=== PATIENT | male | born 1980 | race Caucasian/White ===

== ENCOUNTER 2017-05-10 17:36 | Emergency (ER) | payer OTHER ==
[2017-05-10] MEDS ORDERED: ONDANSETRON 4 MG/2 ML VIAL ONE (17:52)
[2017-05-10 18:00] VITALS: TEMP 97.7
[2017-05-10] MEDS ORDERED: NS 1,000 ML IV ONE (18:13)
[2017-05-10 18:17] LABS: % IMMATURE GRANULYOCYTES 0.3 % (0.0-1.1); ABSOLUTE IMMATURE GRANULOCYTES 0.05 10^3/uL (0.00-0.10); ADD DIFF? NO; ADD MORPH? NO; ADD SCAN? NO; ATYPICAL LYMPHOCYTE FLAG 40 (0-99); FRAGMENT RBC FLAG 0 (0-99); HEMATOCRIT 47.2 % (40.0-51.0); HEMOGLOBIN 16.6 g/dL (13.7-17.5); LEFT SHIFT FLG 0 (0-99); LIPEMIA HEMOLYSIS FLAG 90 (0-99); MEAN CELL HEMOGLOBIN 30.4 pg (27.9-34.1); MEAN CELL HEMOGLOBIN CONCENTR. 35.2 g/dL (32.4-36.7); MEAN CELL VOLUME 86.4 fL (81.5-99.8); MEAN PLATELET VOLUME 10.1 fL (8.7-11.7); PLATELET CLUMPS FLAG 0 (0-99); PLATELET COUNT 324 10^3/uL (150-400); RED BLOOD CELL COUNT 5.46 10^6/uL (4.40-6.38); RED CELL DISTRIBUTION WIDTH 13.9 % (11.5-15.2)
[2017-05-10 18:25] LABS: ALBUMIN 4.6 g/dL (3.5-5.0); BILIRUBIN,TOTAL 0.7 mg/dL (0.1-1.4); BILIRUBIN-CONJUGATED 0.4 mg/dL (0.0-0.5); BILIRUBIN-UNCONJUGATED 0.3 mg/dL (0.0-1.1); CALCIUM 9.2 mg/dL (8.5-10.4); CREATININE 1.4 mg/dL (0.7-1.3); POTASSIUM 4.2 mEq/L (3.5-5.2); TOTAL PROTEIN 7.7 g/dL (6.3-8.2)
[2017-05-10 18:37] VITALS: RESP 16
--- NOTE | 2017-05-10 18:38 | EDPHY ---
H & P Stated Complaint: 2 seizures today, back pain, nausea Time Seen by Provider: 05/10/17 17:51 HPI/ROS: CHIEF COMPLAINT: Two seizures, acute exacerbation of low back pain, nausea HISTORY OF PRESENT ILLNESS: The patient presents to the emergency department with complaints of an acute exacerbation of chronic low back pain following 2 reported seizures today. Patient is accompanied by his who reports a tonic -clonic seizure x2 lasting less than a minute. There is no incontinence. It is uncertain whether the patient was postictal. The patient does have a remote history of seizures. He reports he typically has 1 seizure a year. His last seizure was a year ago. The patient denies any recent alcohol use. 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 The patient does have a history of chronic low back pain and history of prior lower lumbar surgery. The patient denies alcohol use. The patient has not yet established relationship with a primary care provider. The patient takes no regular medications. The patient complains of moderate pain in his low back. He denies acute numbness or weakness. He does report associated nausea. He has a mild sensation of dyspnea. REVIEW OF SYSTEMS: A comprehensive 10 point review of systems is otherwise negative aside from elements mentioned in the history of present illness. Source: Patient, Family Exam Limitations: No limitations - Medical/Surgical History Hx Asthma: No Hx Chronic Respiratory Disease: No Hx Diabetes: No Hx Cardiac Disease: No Hx Renal Disease: No Hx Cirrhosis: No Hx Alcoholism: No Hx HIV/AIDS: No Hx Splenectomy or Spleen Trauma: No Other PMH: DDD, ADHD, seizures, schizoaffective disorder, social anxiety, homelessness. - Social History Smoking Status: Heavy smoker - Physical Exam Exam: General Appearance: Disheveled male, no acute distress Eyes: Pupils equal and round no pallor or injection ENT, Mouth: No teeth, mucous membranes moist, no obvious trauma to the tongue Respiratory: There are no retractions, lungs are clear to auscultation Cardiovascular: Regular rate and rhythm Gastrointestinal: Abdomen is soft and nontender, no masses, bowel sounds normal Neurological: A&O, normal motor function, normal sensory exam, normal cranial nerves Skin: Warm and dry, no rashes Musculoskeletal: Old lumbar surgical incision noted, no midline tenderness, mild bilateral lower lumbar tenderness to palpation Extremities: symmetrical, full range of motion Psychiatric: Patient is oriented X 3, there is no agitation Constitutional: Initial Vital Signs Temperature (C) 36.5 C 05/10/17 17:55 Heart Rate 86 05/10/17 17:55 Respiratory Rate 18 05/10/17 17:55 Blood Pressure 111/83 H 05/10/17 17:55 O2 Sat (%) 94 05/10/17 17:55 O2 Delivery Mode Room Air Allergies/Adverse Reactions: acetaminophen [From Vicodin] Allergy (Verified 05/10/17 18:08) hydrocodone [From Vicodin] Allergy (Verified 05/10/17 18:08) Penicillins Allergy (Verified 05/10/17 18:08) promethazine [From Phenergan] Allergy (Verified 05/10/17 18:08) Home Medications: Medication Instructions Recorded oxyCODONE/APAP 5/325 [Percocet 1 - 2 tab PO Q6-8PRN PRN #20 tab 05/10/17 5/325 (RX)] Medical Decision Making - Diagnostics Imaging Results: Imaging Impressions Lumbar Spine X-Ray 05/10/17 18:33 Impression: Negative. No acute fracture. Chest X-Ray 05/10/17 18:34 Impression: Minimal left basilar atelectasis. Unlikely aspiration. Comment: Results discussed with Dr. Ayaan Matos. ED Course/Re-evaluation: The patient had an IV established. He received a L of normal saline. The patient's laboratory studies do demonstrate a slight leukocytosis and mild acidosis. The patient was observed in the emergency department with no recurrent seizure activity. Patient was taken for a chest x-ray and lumbar spine x-ray. Chest x-ray and lumbar spine x-ray demonstrates no evidence of acute injury or infiltrate. The patient has had no recurrent seizure activity in the ED. He will be discharged home with customary seizure aftercare instructions. The patient is given a prescription for pain medication for his back. Differential Diagnosis: Differential diagnosis considered includes compression fracture, seizure, status epilepticus, metabolic abnormality - Data Points Laboratory Results: Laboratory Results 05/10/17 17:50 05/10/17 17:50 05/10/17 05/10/17 17:50 17:50 WBC 14.54 10^3/uL H 10^3/uL (3.80-9.50) RBC 5.46 10^6/uL 10^6/uL (4.40-6.38) Hgb 16.6 g/dL g/dL (13.7-17.5) Hct 47.2 % % (40.0-51.0) MCV 86.4 fL fL (81.5-99.8) MCH 30.4 pg pg (27.9-34.1) MCHC 35.2 g/dL g/dL (32.4-36.7) RDW 13.9 % % (11.5-15.2) Plt Count 324 10^3/uL 10^3/uL (150-400) MPV 10.1 fL fL (8.7-11.7) Neut % (Auto) 57.4 % % (39.3-74.2) Lymph % (Auto) 29.2 % % (15.0-45.0) [place] % (Auto) 12.2 % % (4.5-13.0) Eos % (Auto) 0.6 % % (0.6-7.6) Baso % (Auto) 0.3 % % (0.3-1.7) Nucleat RBC Rel Count 0.0 % % (0.0-0.2) Absolute Neuts (auto) 8.35 10^3/uL H 10^3/uL (1.70-6.50) Absolute Lymphs (auto) 4.24 10^3/uL H 10^3/uL (1.00-3.00) Absolute Monos (auto) 1.78 10^3/uL H 10^3/uL (0.30-0.80) Absolute Eos (auto) 0.08 10^3/uL 10^3/uL (0.03-0.40) Absolute Basos (auto) 0.04 10^3/uL 10^3/uL (0.02-0.10) Absolute Nucleated RBC 0.00 10^3/uL 10^3/uL (0-0.01) Immature Gran % 0.3 % % (0.0-1.1) Immature Gran # 0.05 10^3/uL 10^3/uL (0.00-0.10) Sodium 137 mEq/L mEq/L (134-144) Potassium 4.2 mEq/L mEq/L (3.5-5.2) Chloride 103 mEq/L mEq/L (97-110) Carbon Dioxide 18 mEq/l L mEq/l (22-31) Anion Gap 16 mEq/L mEq/L (8-16) BUN 14 mg/dL mg/dL (7-23) Creatinine 1.4 mg/dL H mg/dL (0.7-1.3) Estimated GFR 56 Glucose 72 mg/dL mg/dL (70-100) Calcium 9.2 mg/dL mg/dL (8.5-10.4) Total Bilirubin 0.7 mg/dL mg/dL (0.1-1.4) Conjugated Bilirubin 0.4 mg/dL mg/dL (0.0-0.5) Unconjugated Bilirubin 0.3 mg/dL mg/dL (0.0-1.1) AST 29 IU/L IU/L (17-59) ALT 31 IU/L IU/L (21-72) Alkaline Phosphatase 130 IU/L H IU/L (38-126) Total Protein 7.7 g/dL g/dL (6.3-8.2) Albumin 4.6 g/dL g/dL (3.5-5.0) Lipase 43.0 IU/L IU/L (23-300) Medications Given: Discontinued Medications Sodium Chloride (Ns) 1,000 mls @ 0 mls/hr IV ONCE ONE; Wide Open PRN Reason: Protocol Stop: 05/10/17 18:14 Last Admin: 05/10/17 18:13 Dose: 1,000 mls Oxycodone/Acetaminophen (Percocet 5/325) 2 tab PO EDNOW ONE Stop: 05/10/17 19:19 Last Admin: 05/10/17 19:25 Dose: 2 tab Departure - Departure Disposition: Home, Routine, Self-Care Clinical Impression: Seizure disorder, Lumbar pain Condition: Fair Instructions: Recurrent Seizures in Adults (ED) Additional Instructions: 1. No driving, dangerous activities such as riding a ski lift, swimming in a pool or other behavior that could put you or someone else at risk in the event of a recurrent seizure. You will need to be cleared by a neurologist to resume these activities. 2. Please return to the ED for recurrent seizure, headache, numbness, weakness, altered mental status or other concerns. 3. Please follow up with neurologist you have been referred to this week to schedule a follow-up appointment. 4. Please schedule a follow-up appointment with [facility] to establish primary care. Referrals: [facility],. [Clinic] - As per Instructions Karthikeyan Lee MD [Medical Doctor] - As per Instructions Prescriptions: oxyCODONE/APAP 5/325 [Percocet 5/325 (RX)] 1 - 2 tab PO Q6-8PRN PRN #20 tab PRN Reason: for pain
[2017-05-10] MEDS ORDERED: OXYCODONE/APAP 5/325 TAB PO ONE (19:18)
[2017-05-10 19:52] VITALS: BP 117/70; PULSE 90; O2SAT 94
== END 2017-05-10 19:40 | disposition home or self-care (01) ==
LOC: CED 17:36
DX: G40.909 Epilepsy, unspecified, not intractable, without status epilepticus (principal); M54.5 Low back pain; F17.200 Nicotine dependence, unspecified, uncomplicated
CPT/HCPCS: 71020; 72100; 96360; 99284; J2405; 80048-PO; 80076-PO; 83690-PO; 85025-PO

== ENCOUNTER 2017-06-17 19:48 | Emergency (ER) | payer OTHER ==
--- NOTE | 2017-06-17 20:12 | EDPHY ---
H & P Stated Complaint: states sz recently back pain fall today hit head nausea HPI/ROS: HPI CHIEF COMPLAINT: Fall, head strike, headache, nausea, chronic pain HISTORY OF PRESENT ILLNESS: this patient very pleasant 37-year-old male significant past medical history for schizophrenia, bipolar disorder, chronic back pain, lumbar disc surgery, generalized tonic-clonic seizure disorder but does not take any seizure medications, history of methamphetamine abuse, presents emergency room after states earlier today he fell when his right knee buckled. Hit his head against a rock while he was at his camp site. Since then he has had a posterior headache with nausea and vomiting. Denies double vision or blurry vision. He still states that he has a persistent posterior headache where he struck his head. No neck pain. Denies chest pain or shortness of breath. Patient requesting nausea medicine and pain medicine here in emergency room. Upon arrival here in emergency room he has a GCS 15 is alert or x3 no acute distress resting comfortably. Past Medical History: Seizures, bipolar disorder, schizophrenia, chronic back pain, chronic pain, lumbar disc herniation Past Surgical History: lumbar disc surgery Social History: history of methamphetamine abuse denies daily use of alcohol. Family History: Noncontributory ROS REVIEW OF SYSTEMS: A comprehensive 10 point review of systems is otherwise negative aside from elements mentioned in the history of present illness. Exam Constitutional appears well nontoxic, GCS 15, alert or x3 triage nursing summary reviewed, vital signs reviewed, awake/alert. Eyes normal conjunctivae and sclera, EOMI, PERRLA. HENT head/neck: normal inspection, atraumatic, moist mucus membranes, no epistaxis, neck supple/ no meningismus, no raccoon eyes. Respiratory clear to auscultation bilaterally, normal breath sounds, no respiratory distress, no wheezing. Cardiovascular rate normal, regular rhythm, no murmur, no edema, distal pulses normal. Gastrointestinal soft, non-tender, no rebound, no guarding, normal bowel sounds, no distension, no pulsatile mass. Genitourinary no CVA tenderness. Musculoskeletal no midline vertebral tenderness, full range of motion, no calf swelling, no tenderness of extremities, no meningismus, good pulses, neurovascularly intact. Skin pink, warm, & dry, no rash, skin atraumatic. Neurologic awake, alert and oriented x 3, AAOx3, moves all 4 extremities equally, motor intact, sensory intact, CN II-XII intact, normal cerebellar, normal vision, normal speech. Psychiatric normal mood/affect. Heme/Lymph/Immune no lymphadenopathy. Differential Diagnosis: includes but is not limited to in a particular order, closed-head injury, concussion, skull fracture, intracranial bleed, acute on chronic pain Medical Decision Making: plan for this patient CT head without contrast rule out significant trauma, Percocet for pain control, Zofran for nausea, check basic blood work. Re-evaluation: CT scan of the Head without IV contrast. The results of the study are negative for acute abnormality The study was read by Dr. Rosado. I viewed the images myself on the PACS system. 2111: re-evaluation at this time this patient is resting comfortably no acute distress. Feels much better after nausea medicine pain medicine. His CT scan of his head for trauma is unremarkable. Vital signs are stable I will allow him to be discharged from the emergency room. Source: Patient - Personal History Current Tetanus/Diphtheria Vaccine: Yes Current Tetanus Diphtheria and Acellular Pertussis (TDAP): Yes - Medical/Surgical History Hx Asthma: No Hx Chronic Respiratory Disease: No Hx Diabetes: No Hx Cardiac Disease: No Hx Renal Disease: No Hx Cirrhosis: No Hx Alcoholism: No Hx HIV/AIDS: No Hx Splenectomy or Spleen Trauma: No Other PMH: DDD, ADHD, seizures, schizoaffective disorder, social anxiety, homelessness. back surgery thumb surgery - Social History Smoking Status: Heavy smoker Constitutional: Initial Vital Signs Temperature (C) 36.6 C 06/17/17 19:50 Heart Rate 81 06/17/17 19:50 Respiratory Rate 18 06/17/17 19:50 Blood Pressure 126/85 H 06/17/17 19:50 O2 Sat (%) 95 06/17/17 19:50 O2 Delivery Mode Room Air Allergies/Adverse Reactions: acetaminophen [From Vicodin] Allergy (Verified 05/10/17 18:08) hydrocodone [From Vicodin] Allergy (Verified 05/10/17 18:08) Penicillins Allergy (Verified 05/10/17 18:08) promethazine [From Phenergan] Allergy (Verified 05/10/17 18:08) Home Medications: Medication Instructions Recorded NK [No Known Home Meds] 06/17/17 Medical Decision Making - Diagnostics Imaging Results: Imaging Impressions Head CT 06/17/17 20:16 Impression: Negative noncontrast CT of the brain for acute injury. Low-lying cerebellar tonsils versus Chiari I malformation. Results called to Dr. Fadi Murray at 9:00 PM at the time of the interpretation. - Data Points Laboratory Results: Laboratory Results 06/17/17 20:30 06/17/17 20:30 06/17/17 06/17/17 20:30 20:30 WBC 9.89 10^3/uL H 10^3/uL (3.80-9.50) RBC 4.63 10^6/uL 10^6/uL (4.40-6.38) Hgb 14.6 g/dL g/dL (13.7-17.5) Hct 40.8 % % (40.0-51.0) MCV 88.1 fL fL (81.5-99.8) MCH 31.5 pg pg (27.9-34.1) MCHC 35.8 g/dL g/dL (32.4-36.7) RDW 14.7 % % (11.5-15.2) Plt Count 285 10^3/uL 10^3/uL (150-400) MPV 10.0 fL fL (8.7-11.7) Neut % (Auto) 51.3 % % (39.3-74.2) Lymph % (Auto) 35.5 % % (15.0-45.0) [place] % (Auto) 10.9 % % (4.5-13.0) Eos % (Auto) 1.6 % % (0.6-7.6) Baso % (Auto) 0.5 % % (0.3-1.7) Nucleat RBC Rel Count 0.0 % % (0.0-0.2) Absolute Neuts (auto) 5.07 10^3/uL 10^3/uL (1.70-6.50) Absolute Lymphs (auto) 3.51 10^3/uL H 10^3/uL (1.00-3.00) Absolute Monos (auto) 1.08 10^3/uL H 10^3/uL (0.30-0.80) Absolute Eos (auto) 0.16 10^3/uL 10^3/uL (0.03-0.40) Absolute Basos (auto) 0.05 10^3/uL 10^3/uL (0.02-0.10) Absolute Nucleated RBC 0.00 10^3/uL 10^3/uL (0-0.01) Immature Gran % 0.2 % % (0.0-1.1) Immature Gran # 0.02 10^3/uL 10^3/uL (0.00-0.10) Sodium 138 mEq/L mEq/L (134-144) Potassium 3.8 mEq/L mEq/L (3.5-5.2) Chloride 106 mEq/L mEq/L (97-110) Carbon Dioxide 18 mEq/l L mEq/l (22-31) Anion Gap 14 mEq/L mEq/L (8-16) BUN 12 mg/dL mg/dL (7-23) Creatinine 1.0 mg/dL mg/dL (0.7-1.3) Estimated GFR > 60 Glucose 96 mg/dL mg/dL (70-100) Calcium 9.2 mg/dL mg/dL (8.5-10.4) Medications Given: Discontinued Medications Ondansetron HCl (Zofran Odt) 4 mg PO EDNOW ONE Stop: 06/17/17 20:17 Last Admin: 06/17/17 20:27 Dose: 4 mg Oxycodone/Acetaminophen (Percocet 5/325) 1 tab PO EDNOW ONE Stop: 06/17/17 20:18 Last Admin: 06/17/17 20:27 Dose: 1 tab Departure - Departure Disposition: Home, Routine, Self-Care Clinical Impression: Head injury Qualifiers: Encounter type: initial encounter Qualified Code(s): S09.90XA - Unspecified injury of head, initial encounter Fall Qualifiers: Encounter type: initial encounter Qualified Code(s): W19.XXXA - Unspecified fall, initial encounter Condition: Good Instructions: Concussion (ED), Head Injury (ED), Fall Prevention (ED) Referrals: NONE *PRIMARY CARE P,. [Primary Care Provider] - As per Instructions
--- NOTE | 2017-06-17 20:15 | EDPHY ---
H & P Stated Complaint: states sz recently back pain fall today hit head nausea HPI/ROS: CHIEF COMPLAINT: HISTORY OF PRESENT ILLNESS: REVIEW OF SYSTEMS: A ten point review of systems was performed and is negative with the exception of the items mentioned in the HPI. - Personal History Current Tetanus/Diphtheria Vaccine: Yes Current Tetanus Diphtheria and Acellular Pertussis (TDAP): Yes - Medical/Surgical History Hx Asthma: No Hx Chronic Respiratory Disease: No Hx Diabetes: No Hx Cardiac Disease: No Hx Renal Disease: No Hx Cirrhosis: No Hx Alcoholism: No Hx HIV/AIDS: No Hx Splenectomy or Spleen Trauma: No Other PMH: DDD, ADHD, seizures, schizoaffective disorder, social anxiety, homelessness. back surgery thumb surgery - Social History Smoking Status: Heavy smoker - Physical Exam Exam: General Appearance: Alert. Vital signs reviewed. * Eyes: Pupils equal and round, no conjunctival injection, no discharge. Anicteric. ENT, Mouth: Mucous membranes are moist, no oropharyngeal erythema or edema. Neck: No lymphadenopathy, supple. Respiratory: Lungs are clear to auscultation; no wheezes, rales, or rhonchi. Cardiovascular: Regular rate and rhythm; no murmur, rub, or gallop. Gastrointestinal: Abdomen is soft and nontender, no masses or organomegaly, bowel sounds normal. Skin: Warm and dry, no rashes on exposed skin, normal color. Back: Nontender to palpation over the thoracolumbar spine. No CVAT. Extremities: No lower extremity edema, no calf tenderness or swelling. Neurological: Alert and oriented. Moving all four extremities easily and equally. Cranial nerves II through XII are examined and are intact (visual acuity not tested). Strength is 5 over 5 bilaterally with testing of all major motor groups. Sensation is intact to light touch over all 4 extremities. Deep tendon reflexes are 2+ in the biceps and knees bilaterally. Gait is normal. [id number] is performed accurately. Psychiatric: Normal affect. Constitutional: Initial Vital Signs Temperature (C) 36.6 C 06/17/17 19:50 Heart Rate 81 06/17/17 19:50 Respiratory Rate 18 06/17/17 19:50 Blood Pressure 126/85 H 06/17/17 19:50 O2 Sat (%) 95 06/17/17 19:50 O2 Delivery Mode Room Air Allergies/Adverse Reactions: acetaminophen [From Vicodin] Allergy (Verified 05/10/17 18:08) hydrocodone [From Vicodin] Allergy (Verified 05/10/17 18:08) Penicillins Allergy (Verified 05/10/17 18:08) promethazine [From Phenergan] Allergy (Verified 05/10/17 18:08) Home Medications: Medication Instructions Recorded NK [No Known Home Meds] 06/17/17 Departure - Departure Referrals: NONE *PRIMARY CARE P,. [Primary Care Provider] - As per Instructions Physician Review and Approval Statement: 06/17/17 20:14 Portions of this note were transcribed by the chief medical director. I, Dr. Mitzi Kramer, personally performed the history, physical exam, and medical decision- making; and confirmed the accuracy of the information in the transcribed note.
[2017-06-17] MEDS ORDERED: ONDANSETRON DISINTEGRATING 4 MG TAB PO ONE (20:16)
[2017-06-17] MEDS ORDERED: OXYCODONE/APAP 5/325 TAB PO ONE (20:17)
[2017-06-17 20:47] LABS: % IMMATURE GRANULYOCYTES 0.2 % (0.0-1.1); ABSOLUTE IMMATURE GRANULOCYTES 0.02 10^3/uL (0.00-0.10); ADD DIFF? NO; ADD MORPH? NO; ADD SCAN? NO; ATYPICAL LYMPHOCYTE FLAG 40 (0-99); FRAGMENT RBC FLAG 0 (0-99); HEMATOCRIT 40.8 % (40.0-51.0); HEMOGLOBIN 14.6 g/dL (13.7-17.5); LEFT SHIFT FLG 0 (0-99); LIPEMIA HEMOLYSIS FLAG 90 (0-99); MEAN CELL HEMOGLOBIN 31.5 pg (27.9-34.1); MEAN CELL HEMOGLOBIN CONCENTR. 35.8 g/dL (32.4-36.7); MEAN CELL VOLUME 88.1 fL (81.5-99.8); PLATELET CLUMPS FLAG 0 (0-99); PLATELET COUNT 285 10^3/uL (150-400); RED BLOOD CELL COUNT 4.63 10^6/uL (4.40-6.38); RED CELL DISTRIBUTION WIDTH 14.7 % (11.5-15.2)
[2017-06-17 20:50] LABS: ANION GAP 14 mEq/L (8-16); CALCIUM 9.2 mg/dL (8.5-10.4); CARBON DIOXIDE 18 mEq/l (22-31); CHLORIDE 106 mEq/L (97-110); GLOMERULAR FILTRATION RATE > 60; GLUCOSE 96 mg/dL (70-100); POTASSIUM 3.8 mEq/L (3.5-5.2); SODIUM 138 mEq/L (134-144)
[2017-06-17] MEDS ORDERED: ONDANSETRON 4MG PREPACK#2 BTL TAKEHOME ONE (21:24)
[2017-06-17 21:32] VITALS: BP 121/67; PULSE 68; RESP 14; TEMP 97.3; O2SAT 94
== END 2017-06-17 21:31 | disposition home or self-care (01) ==
DX: S09.90XA Unspecified injury of head, initial encounter (principal); F17.200 Nicotine dependence, unspecified, uncomplicated; W18.00XA Striking against unspecified object with subsequent fall, initial encounter

== ENCOUNTER 2017-07-18 11:09 | Emergency (ER) | payer OTHER ==
[2017-07-18 11:20] VITALS: TEMP 98.4
[2017-07-18] MEDS: KETOROLAC 15 MG/1 ML SDV IVP ONE ×2 (12:10→12:19)
[2017-07-18] MEDS: DEXAMETHASONE 4 MG/ML VIAL IVP ONE ×2 (12:10→12:21)
[2017-07-18] MEDS: DIAZEPAM 10 MG/2 ML SYR IVP ONE ×2 (12:11→12:21)
[2017-07-18 12:27] LABS: COLOR YELLOW; LEUKOCYTE ESTERASE,URINE NEGATIVE (NEGATIVE); NITRITE,URINE NEGATIVE (NEGATIVE)
[2017-07-18 12:38] LABS: MUCUS TRACE /lpf (NONE-1+)
--- NOTE | 2017-07-18 12:38 | EDPHY ---
H & P Time Seen by Provider: 07/18/17 12:34 HPI/ROS: HPI: Mr. Carmona is a 37 yrs, male who presents with Chief Complaint: Left upper back strain Location: Left upper back/shoulder Quality: Pain Duration: Since yesterday Signs and Symptoms: No radiation, no weakness, positive swelling, positive spasm, no numbness, no tingling, no lower back pain, no urinary symptoms Timing: Gradual onset, now constant Severity: 09/06 Context: Patient states that he went to kick a walk with his right foot yesterday into the fire and felt a sharp pop in his left upper back with resultant pain and soon after spasm. Patient tried taking ibuprofen without relief. Notes pain increased with using his left arm. No primary care provider. Modifying Factors: Ibuprofen no relief Comment: ROS: Eyes: No blurred vision Respiratory: No shortness of breath, no cough Cardiovascular: No chest pain Gastrointestinal: No nausea, no vomiting no diarrhea Genitourinary: No dysuria Extremities: No myalgias Neurologic: No weakness, no numbness Skin: No rashes Hematologic: No bruising, no bleeding MEDICAL/SURGICAL HISTORY: Bipolar disorder, schizoaffective disorder, posttraumatic stress disorder, chronic low back pain. Lumbar surgery. Social History: On disability. . Smoking Status: Heavy smoker Physical Exam: CONSTITUTIONAL: Well-appearing adult white male, poor personal hygiene, awake and alert, no obvious distress HEENT: Atraumatic and normocephalic, PERRL, EOMI. Tympanic membranes clear. Oropharynx clear, poor dentition, no exudate and moist pink mucosa. Airway patent. No lymphadenopathy. No meningismus. Cardiovascular: Normal S1/S2, regular rate, regular rhythm, without murmur rub or gallop. PULMONARY/CHEST: Symmetrical and nontender. Clear to auscultation bilaterally Good air movement. No accessory muscle usage. ABDOMEN: Soft, nondistended, nontender, no rebound, no guarding, no peritoneal signs, no masses or organomegaly. No CVAT. EXTREMITIES: 2/2 pulses, no deformities, no clubbing, no cyanosis or edema. Left shoulder no AC joint tenderness; good internal rotation external rotation and ABduction. Deltoid strength 5/5. Arc to 90 with resultant pain thereafter. BACK: Moderate thoracic paraspinous muscle reproducible tenderness on the left side, positive paraspinous muscle spasm. Deep tendon reflexes 2/2. Relatively good flexion extension and rotation. NEUROLOGICAL: no focal neuro deficits. GCS 15. SKIN: Warm and dry, no erythema. no rash. Good capillary refill. Constitutional: Initial Vital Signs Temperature (C) 36.9 C 07/18/17 11:17 Heart Rate 83 07/18/17 11:17 Respiratory Rate 18 07/18/17 11:17 Blood Pressure 132/90 H 07/18/17 11:17 O2 Sat (%) 95 07/18/17 11:17 O2 Delivery Mode Room Air Allergies/Adverse Reactions: acetaminophen [From Vicodin] Allergy (Verified 07/18/17 11:16) hydrocodone [From Vicodin] Allergy (Verified 07/18/17 11:16) Penicillins Allergy (Verified 07/18/17 11:16) promethazine [From Phenergan] Allergy (Verified 07/18/17 11:16) Home Medications: Medication Instructions Recorded Cyclobenzaprine [Flexeril 10 MG 10 mg PO TID PRN #15 tab 07/18/17 (*)] Naproxen 500 mg PO BID PRN #20 tablet. 07/18/17 Medical Decision Making ED Course/Re-evaluation: Thoracic x-ray, IV medications, urinalysis ordered UA shows no blood and no signs of infection. Patient given Toradol, dexamethasone, Valium with moderate relief No signs of neurovascular compromise, fracture, dislocation Patient advised follow up [facility] as well as Orthopedics. Differential Diagnosis: Back pain including but not limited to muscular pain, herniated disc, spine fracture, intra-abdominal causes and urinary tract infection. - Data Points Laboratory Results: 07/18/17 11:50 Urine Color YELLOW Urine Appearance CLEAR Urine pH 5.0 (5.0-7.5) Ur Specific [place] > 1.035 H (1.002-1.030) Urine Protein 1+ H (NEGATIVE) Urine Ketones NEGATIVE (NEGATIVE) Urine Blood NEGATIVE (NEGATIVE) Urine Nitrate NEGATIVE (NEGATIVE) Urine Bilirubin NEGATIVE (NEGATIVE) Urine Urobilinogen NEGATIVE EU EU (0.2-1.0) Ur Leukocyte Esterase NEGATIVE (NEGATIVE) Urine RBC NONE SEEN /hpf /hpf (0-3) Urine WBC 1-3 /hpf /hpf (0-3) Ur Epithelial Cells NONE SEEN /lpf /lpf (NONE-1+) Urine Mucus TRACE /lpf /lpf (NONE-1+) Urine Glucose NEGATIVE (NEGATIVE) Medications Given: Discontinued Medications Dexamethasone (Decadron Injection) 8 mg IVP EDNOW ONE Stop: 07/18/17 11:52 Last Admin: 07/18/17 12:21 Dose: 8 mg Diazepam (Valium Injection) 5 mg IVP EDNOW ONE Stop: 07/18/17 11:52 Last Admin: 07/18/17 12:21 Dose: 5 mg Ketorolac Tromethamine (Toradol) 15 mg IVP EDNOW ONE Stop: 07/18/17 11:52 Last Admin: 07/18/17 12:19 Dose: Not Given Departure - Departure Disposition: Home, Routine, Self-Care Clinical Impression: Strain of thoracic region Qualifiers: Encounter type: initial encounter Qualified Code(s): S29.019A - Strain of muscle and tendon of unspecified wall of thorax, initial encounter Condition: Good Instructions: Thoracic Back Strain (ED) Referrals: NONE *PRIMARY CARE P,. [Primary Care Provider] - As per Instructions [facility],. [Clinic] - 2-3 days, if not improved Dinesh Gutierrez MD [Medical Doctor] - As per Instructions Prescriptions: Cyclobenzaprine [Flexeril 10 MG (*)] 10 mg PO TID PRN #15 tab PRN Reason: Spasms Naproxen 500 mg PO BID PRN #20 tablet.dr PRN Reason: Pain, Mild
[2017-07-18 12:41] LABS: RBC,URINE NONE SEEN /hpf (0-3)
[2017-07-18 14:11] VITALS: BP 130/76; PULSE 76; RESP 14; O2SAT 93
== END 2017-07-18 14:10 | disposition home or self-care (01) ==
DX: S29.012A Strain of muscle and tendon of back wall of thorax, initial encounter (principal); F17.200 Nicotine dependence, unspecified, uncomplicated; W22.8XXA Striking against or struck by other objects, initial encounter
CPT/HCPCS: 72070; 73030; 96374; 96375; 99284; J1100; J1885

== ENCOUNTER 2017-08-01 03:28 | Emergency (ER) | payer OTHER ==
--- NOTE | 2017-08-01 03:49 | EDPHY ---
H & P Source: Patient, Police - Personal History Current Tetanus/Diphtheria Vaccine: Yes Current Tetanus Diphtheria and Acellular Pertussis (TDAP): Yes - Medical/Surgical History Hx Asthma: No Hx Chronic Respiratory Disease: No Hx Diabetes: No Hx Cardiac Disease: No Hx Renal Disease: No Hx Cirrhosis: No Hx Alcoholism: No Hx HIV/AIDS: No Hx Splenectomy or Spleen Trauma: No Other PMH: DDD, ADHD, seizures, schizoaffective disorder, social anxiety, homelessness. back surgery thumb surgery degenerative disc disease - Social History Smoking Status: Heavy smoker HPI/ROS: HPI CHIEF COMPLAINT: Suicidal ideation, M1 hold HISTORY OF PRESENT ILLNESS: This patient 37-year-old male he has significant past medical history for bipolar disorder and schizophrenia, PTSD, not on any medications he presents emergency room feeling suicidal. He is on M1 hold by police. He states he on argument with his . He is not on any of his medications. He is feeling depressed and suicidal without an active plan. Past Medical History: Bipolar disorder, schizophrenia, PTSD Past Surgical History: No recent surgery Social History: Homeless, lives [place], history of methamphetamine abuse, daily marijuana use, did have 2 shots of alcohol this evening. Family History: Noncontributory ROS REVIEW OF SYSTEMS: A comprehensive 10 point review of systems is otherwise negative aside from elements mentioned in the history of present illness. Exam Constitutional tearful, depressed triage nursing summary reviewed, vital signs reviewed, awake/alert. Eyes normal conjunctivae and sclera, EOMI, PERRLA. HENT normal inspection, atraumatic, moist mucus membranes, no epistaxis, neck supple/ no meningismus, no raccoon eyes. Respiratory clear to auscultation bilaterally, normal breath sounds, no respiratory distress, no wheezing. Cardiovascular rate normal, regular rhythm, no murmur, no edema, distal pulses normal. Gastrointestinal soft, non-tender, no rebound, no guarding, normal bowel sounds, no distension, no pulsatile mass. Genitourinary no CVA tenderness. Musculoskeletal no midline vertebral tenderness, full range of motion, no calf swelling, no tenderness of extremities, no meningismus, good pulses, neurovascularly intact. Skin pink, warm, & dry, no rash, skin atraumatic. Neurologic awake, alert and oriented x 3, AAOx3, moves all 4 extremities equally, motor intact, sensory intact, CN II-XII intact, normal cerebellar, normal vision, normal speech. Psychiatric tearful, depressed Heme/Lymph/Immune no lymphadenopathy. Differential Diagnosis: Includes but is not limited to in a particular order bipolar disorder with depression, suicidal ideation, acute psychosis, drug abuse. Medical Decision Making: Plan for this patient blood draw for medical clearance , he is on M1 hold he will need mental health evaluation. Re-evaluation: (Addison Lezama) Constitutional: Initial Vital Signs Temperature (C) 36.6 C 08/01/17 03:30 Heart Rate 74 08/01/17 03:30 Respiratory Rate 16 08/01/17 03:30 Blood Pressure 130/77 H 08/01/17 03:30 O2 Sat (%) 93 08/01/17 03:30 O2 Delivery Mode Room Air Allergies/Adverse Reactions: acetaminophen [From Vicodin] Allergy (Verified 08/01/17 03:35) hydrocodone [From Vicodin] Allergy (Verified 08/01/17 03:35) Penicillins Allergy (Verified 08/01/17 03:35) promethazine [From Phenergan] Allergy (Verified 08/01/17 03:35) Home Medications: Medication Instructions Recorded Cyclobenzaprine [Flexeril 10 MG 10 mg PO TID PRN #15 tab 07/18/17 (*)] Naproxen 500 mg PO BID PRN #20 tablet. 07/18/17 Medical Decision Making Other Provider: 0700: I took over care of this patient at shift change from Dr. Lezama. Placement pending. (Paulino Maddox) - Data Points Laboratory Results: Laboratory Results 08/01/17 03:40 08/01/17 03:40 08/01/17 08/01/17 08/01/17 03:50 03:40 03:40 WBC 9.70 10^3/uL H 10^3/uL (3.80-9.50) RBC 4.65 10^6/uL 10^6/uL (4.40-6.38) Hgb 14.9 g/dL g/dL (13.7-17.5) Hct 43.3 % % (40.0-51.0) MCV 93.1 fL fL (81.5-99.8) MCH 32.0 pg pg (27.9-34.1) MCHC 34.4 g/dL g/dL (32.4-36.7) RDW 13.2 % % (11.5-15.2) Plt Count 298 10^3/uL 10^3/uL (150-400) MPV 9.7 fL fL (8.7-11.7) Neut % (Auto) 56.6 % % (39.3-74.2) Lymph % (Auto) 29.9 % % (15.0-45.0) [place] % (Auto) 9.6 % % (4.5-13.0) Eos % (Auto) 3.0 % % (0.6-7.6) Baso % (Auto) 0.5 % % (0.3-1.7) Nucleat RBC Rel Count 0.0 % % (0.0-0.2) Absolute Neuts (auto) 5.49 10^3/uL 10^3/uL (1.70-6.50) Absolute Lymphs (auto) 2.90 10^3/uL 10^3/uL (1.00-3.00) Absolute Monos (auto) 0.93 10^3/uL H 10^3/uL (0.30-0.80) Absolute Eos (auto) 0.29 10^3/uL 10^3/uL (0.03-0.40) Absolute Basos (auto) 0.05 10^3/uL 10^3/uL (0.02-0.10) Absolute Nucleated RBC 0.00 10^3/uL 10^3/uL (0-0.01) Immature Gran % 0.4 % % (0.0-1.1) Immature Gran # 0.04 10^3/uL 10^3/uL (0.00-0.10) Sodium 138 mEq/L mEq/L (134-144) Potassium 4.4 mEq/L mEq/L (3.5-5.2) Chloride 105 mEq/L mEq/L (97-110) Carbon Dioxide 21 mEq/l L mEq/l (22-31) Anion Gap 12 mEq/L mEq/L (8-16) BUN 16 mg/dL mg/dL (7-23) Creatinine 0.9 mg/dL mg/dL (0.7-1.3) Estimated GFR > 60 Glucose 77 mg/dL mg/dL (70-100) Calcium 9.1 mg/dL mg/dL (8.5-10.4) Urine Opiates Screen NEGATIVE (NEGATIVE) Urine Barbiturates NEGATIVE (NEGATIVE) Ur Phencyclidine Scrn NEGATIVE (NEGATIVE) Ur Amphetamine Screen NEGATIVE (NEGATIVE) U Benzodiazepines Scrn NEGATIVE (NEGATIVE) Urine Cocaine Screen NEGATIVE (NEGATIVE) U Marijuana (THC) Screen NON-NEGATIVE H (NEGATIVE) Ethyl Alcohol < 10 mg/dL mg/dL (0-10) Departure - Departure Clinical Impression: Suicidal ideation Condition: Fair Referrals: NONE *PRIMARY CARE P,. [Primary Care Provider] - As per Instructions
[2017-08-01 03:52] VITALS: RESP 16
[2017-08-01 03:54] LABS: % IMMATURE GRANULYOCYTES 0.4 % (0.0-1.1); ABSOLUTE IMMATURE GRANULOCYTES 0.04 10^3/uL (0.00-0.10); ADD DIFF? NO; ADD MORPH? NO; ADD SCAN? NO; ATYPICAL LYMPHOCYTE FLAG 10 (0-99); FRAGMENT RBC FLAG 0 (0-99); HEMATOCRIT 43.3 % (40.0-51.0); HEMOGLOBIN 14.9 g/dL (13.7-17.5); LEFT SHIFT FLG 0 (0-99); LIPEMIA HEMOLYSIS FLAG 90 (0-99); MEAN CELL HEMOGLOBIN CONCENTR. 34.4 g/dL (32.4-36.7); MEAN CELL VOLUME 93.1 fL (81.5-99.8); MEAN PLATELET VOLUME 9.7 fL (8.7-11.7); PLATELET CLUMPS FLAG 10 (0-99); PLATELET COUNT 298 10^3/uL (150-400); RED BLOOD CELL COUNT 4.65 10^6/uL (4.40-6.38); RED CELL DISTRIBUTION WIDTH 13.2 % (11.5-15.2)
[2017-08-01 04:04] LABS: ANION GAP 12 mEq/L (8-16); CALCIUM 9.1 mg/dL (8.5-10.4); CARBON DIOXIDE 21 mEq/l (22-31); CHLORIDE 105 mEq/L (97-110); CREATININE 0.9 mg/dL (0.7-1.3); ETHANOL SERUM < 10 mg/dL (0-10); GLOMERULAR FILTRATION RATE > 60; GLUCOSE 77 mg/dL (70-100); POTASSIUM 4.4 mEq/L (3.5-5.2); SODIUM 138 mEq/L (134-144)
[2017-08-01 08:51] VITALS: TEMP 97.5
[2017-08-01] MEDS ORDERED: IBUPROFEN 600 MG TAB PO ONE (08:51)
[2017-08-01] MEDS ORDERED: NICOTINE 21 MG/24 HR PATCH TD ONE (09:43)
[2017-08-01] MEDS: LIDOCAINE 5% 1 EA PATCH TD SCH ×2 (09:47→09:48)
[2017-08-01 12:46] VITALS: BP 117/55; PULSE 68; O2SAT 96
[2017-08-01] MEDS ORDERED: PATCH REMOVAL 1 EA PATCH TD SCH (21:00)
== END 2017-08-01 12:46 ==
LOC: EDUNIT#
DX: R45.851 Suicidal ideations (principal); F17.200 Nicotine dependence, unspecified, uncomplicated
CPT/HCPCS: 80305; G0480